=== PATIENT | female | born 1965 | race Caucasian/White ===

== ENCOUNTER → 2017-01-24 | Outpatient (CLI) | payer BC ==
--- NOTE | 2017-01-25 11:01 | EST ---
DATE OF SERVICE: 01/24/2017 TYPE OF REPORT: Regular stress test - [facility] INDICATION: Chest pain. BASELINE HEART RATE: 82 BASELINE BLOOD PRESSURE: 127/88 MAXIMUM HEART RATE: 160 MAXIMUM BLOOD PRESSURE: 210/90 85% MPHR: 145 100% MPHR: 170 METS: MAX STAGE REACHED: IV TOTAL EXERCISE TIME: 9:45 Baseline EKG revealed normal sinus rhythm without significant ST-T changes. Patient walked for 9 minutes 45 seconds. Achieved a maximum heart rate of 160 beats per minute, which is well above 85% o predicted maximum. Resting heart rate was 82 beats per minute and resting blood pressure was 127/88. Peak heart rate was 160 beats per minute and blood pressure was 210/90. Patient had a hypertensive response to exercise. She did not have any angina or arrhythmia. EKG did not reveal any ST segment changes to indicate ischemia. This is a negative stress test by EKG criteria with good exercise capacity. ZARIA
== END | disposition home or self-care (01) ==
LOC: RADNMMAIN 11:03
PROVIDERS: ATTEND Family Medicine
DX: R07.9 Chest pain, unspecified (principal)
CPT/HCPCS: 93017; 93270; 93271

== ENCOUNTER → 2017-04-18 | Outpatient (CLI) | payer BC ==
--- NOTE | 2017-04-18 13:09 | MM ---
Reason for exam: clinical finding. Last mammogram was performed 3 years and 2 months ago. History: Benign excisional biopsy of the right breast, 2000. Reductions of both breasts, 1999. Physical Findings: Nurse Summary: 0.5cm nodule in the left breast at 2 o'clock (nurse sol). MG Diagnostic Mammo w CAD JUANY Bilateral CC and MLO view(s) were taken. LM and spot compression MLO view(s) were taken of the left breast. Prior study comparison: February 25, 2014, bilateral MG diagnostic mammo w CAD JUANY. The breast tissue is extremely dense which could obscure a lesion on mammography. Finding: There is stable architectural distortion in the right breast consistent with excisional biopsy. Asymmetric breast tissue in the left breast, stable. There is no discrete abnormality persists. These results were verbally communicated with the patient and result sheet given to the patient on 04/18/17. ASSESSMENT: Incomplete: need additional imaging evaluation, BI-RAD 0 RECOMMENDATION: Ultrasound of the left breast. (palpable abnormality)
--- NOTE | 2017-04-18 13:11 | USB ---
Reason for exam: additional evaluation requested from abnormal screening. History: Benign excisional biopsy of the right breast, 2000. Reductions of both breasts, 1999. US Breast Workup Limited LT Left breast ultrasound demonstrates a 1.3 x 0.7 x 1.4cm hyperechoic lesion at 2 o'clock felt to reflect/correlate with stable asymmetric tissue on mammogram. These results were verbally communicated with the patient and result sheet given to the patient on 04/18/17. ASSESSMENT: Probably benign, BI-RAD 3 RECOMMENDATION: Follow-up diagnostic mammogram and ultrasound of the left breast in 6 months.
== END | disposition home or self-care (01) ==
LOC: RADMAMWWP 10:40
PROVIDERS: ATTEND Family Medicine
DX: Z12.31 Encounter for screening mammogram for malignant neoplasm of breast (principal); R92.8 Other abnormal and inconclusive findings on diagnostic imaging of breast
CPT/HCPCS: 76642; G0204

== ENCOUNTER → 2017-04-19 | Day surgery (SDC) | payer BC ==
[2017-04-18 09:12] VITALS: BMI 24.1
[~2017-04-19] MED LIST: PROPOFOL 10 MG/ML 20 ML VIAL IV ONE
[2017-04-19 11:02] VITALS: TEMP 97.2
[2017-04-19] MEDS: LACTATED RINGERS 1,000 ML IV SCH ×2 (11:07→12:23)
--- NOTE | 2017-04-19 12:44 | P.PCN ---
Date of Procedure: 04/19/17 Procedure(s) Performed: BRIEF HISTORY: Patient is a 51-year-old pleasant white female, scheduled for an elective colonoscopy as a part of screening for colon neoplasia. PROCEDURE PERFORMED: Colonoscopy with snare polypectomy. PREOPERATIVE DIAGNOSIS: Screening for colon cancer. IV sedation per Anesthesia. PROCEDURE: After informed consent was obtained, the patient, was brought into the endoscopy unit. IV sedation was administered by Anesthesia under continuous monitoring. Digital rectal examination was normal. Initially the Olympus CF- 160 flexible video colonoscope was then inserted in the rectum, gradually advanced into the cecum without any difficulty. Careful examination was performed as the scope was gradually being withdrawn. Ileocecal valve and the appendiceal orifice were visualized and appeared normal. Prep was excellent. Mucosa of the cecum, ascending colon appeared normal. In the transverse colon there was a 5 mm polyp removed by snare polypectomy. In the sigmoid colon there was another 5 mm polyp that was snare polypectomy. Rest of the transverse colon, descending colon, sigmoid colon, and rectum appeared normal. Scattered left sided diverticulosis seen. Retroflexion was performed in the rectum and no lesions were seen. The patient tolerated the procedure well. IMPRESSION: 5 mm transverse colon polyp status post was snare polypectomy 5 mm sigmoid colon polyp status post post-polypectomy Scattered left sided diverticulosis. RECOMMENDATIONS: Findings of this examination were discussed with the patient as well as a family. She was advised to follow with the biopsy results. If the biopsy shows a tubular adenoma she can have a repeat coloscopy in 5 years.
[2017-04-19 13:26] VITALS: BP 113/65; PULSE 74; RESP 20
== END ==
LOC: ORWHC2ENDO 10:05
PROVIDERS: ATTEND Internal Medicine Gastroenterology
DX: Z12.11 Encounter for screening for malignant neoplasm of colon (principal); D12.3 Benign neoplasm of transverse colon; D12.5 Benign neoplasm of sigmoid colon; K57.30 Diverticulosis of large intestine without perforation or abscess without bleeding
CPT/HCPCS: 81025; 88305; 45385; J2704

== ENCOUNTER → 2017-10-23 | Outpatient (CLI) | payer BC ==
--- NOTE | 2017-10-24 08:54 | MM ---
Reason for exam: follow-up at short interval from prior study. Last mammogram was performed 6 months ago. History: Benign excisional biopsy of the right breast, 2000. Reductions of both breasts, 1999. Physical Findings: Nurse Summary: 1 x 1.5cm nodule in the left lateral breast at 2 o'clock (nurse ts). MG 3D Diag Mammo W/Cad LT CC and MLO view(s) were taken of the left breast. Prior study comparison: April 18, 2017, bilateral MG diagnostic mammo w CAD JUANY. February 25, 2014, bilateral MG diagnostic mammo w CAD JUANY. The breast tissue is heterogeneously dense. This may lower the sensitivity of mammography. Posterior upper outer quadrant palpable marker. Underlying focal asymmetries one stable for 6 months and show no clear persisting mass on post view. These results were verbally communicated with the patient and result sheet given to the patient on 10/23/17. ASSESSMENT: Incomplete: need additional imaging evaluation, BI-RAD 0 RECOMMENDATION: Ultrasound of the left breast.
--- NOTE | 2017-10-24 09:05 | USB ---
Reason for exam: additional evaluation requested from abnormal screening. History: Benign excisional biopsy of the right breast, 2000. Reductions of both breasts, 1999. US Breast LT Left complete breast ultrasound includes all four quadrants, the retroareolar region and axilla. Finding demonstrates a 1.3 x 0.6 x 1.4cm heterogeneous area at 2 o'clock in unchanged in size and configuration for 6 months. Corresponds to the palpable site. This could represent scar tissue or asymmetric breast tissue. Additional 6 months follow up recommended. These results were verbally communicated with the patient and result sheet given to the patient on 10/23/17. ASSESSMENT: Probably benign, BI-RAD 3 RECOMMENDATION: Follow-up diagnostic mammogram of both breasts in 6 months. Ultrasound of the left breast in 6 months.
== END | disposition home or self-care (01) ==
LOC: RADMAMWWP 13:58
PROVIDERS: ATTEND Family Medicine
DX: R92.8 Other abnormal and inconclusive findings on diagnostic imaging of breast (principal)
CPT/HCPCS: 77061; 77065

== ENCOUNTER → 2018-02-03 | Outpatient (CLI) | payer BC ==
--- NOTE | 2018-02-03 16:59 | XR ---
Cervical spine HISTORY: Neck pain, arm numbness 3 views of the cervical spine There is spondylosis with loss of disc height present at C5-6, minimal retrolisthesis grade 1. Cervic al vertebral bodies show preserved height. Bone mineralization is normal. Suspect some mild facet art hropathy. IMPRESSION: Degenerative disc disease and facet arthropathy. Cervical MRI may be of benefit.
== END | disposition home or self-care (01) ==
LOC: RADXRMAIN 13:26
PROVIDERS: ATTEND Family Medicine
DX: M50.30 Other cervical disc degeneration, unspecified cervical region (principal); M46.92 Unspecified inflammatory spondylopathy, cervical region
CPT/HCPCS: 72040

== ENCOUNTER → 2018-02-24 | Outpatient (CLI) | payer BC ==
--- NOTE | 2018-02-24 16:31 | MR ---
MRI CERVICAL SPINE: CLINICAL HISTORY: Cervical region radiculopathy per order. Headache with neck pain causing shoulder p ain and pain and weakness into both arms and fingers for 5 years per patient. TECHNIQUE: Multiplanar, multisequence imaging of the cervical spine is performed without IV contrast. COMPARISON: MRI cervical spine July 22, 2015. Cervical spine x-ray February 03, 2018. FINDINGS: Sagittal images of the cervical spine show the craniocervical junction to remain within nor mal limits. The cervical and upper thoracic spinal cord remains normal in course, caliber, and signa l. There is stable grade 1 retrolisthesis of C5 on C6 with [id number] disc space narrowing at t his level and mild disc space narrowing C6-C7 level. The vertebral body and intravertebral disk heig hts otherwise are normal. No new large posterior disc herniations are seen on sagittal images. The mary ne marrow signal intensity is within normal limits. No significant spurring is present. Axial images show the C2-C3, C3-C4, C4-C5 levels all to remain within normal limits. Axial images at C5-C6 level show tiny central disc protrusion minimally effacing anterior thecal sac, bilateral neural foramina are patent. No significant change from prior. Axial images at C6-C7 level show slightly more prominent central disc protrusion mildly facing anteri or thecal sac and causing asymmetric mild right-sided neural foraminal narrowing on current study due to foraminal component. Left-sided neural foramen is patent. Axial images at C7-T1 level are felt within normal limits. IMPRESSION: Stable mild degenerative change C5-C6 level and mild spondylolisthesis. New small disc he rniation C6-C7 level is noted.
== END | disposition home or self-care (01) ==
LOC: RADMRIMAIN 15:22
PROVIDERS: ATTEND Family Medicine
DX: M50.123 Cervical disc disorder at C6-C7 level with radiculopathy (principal); M43.12 Spondylolisthesis, cervical region; M47.22 Other spondylosis with radiculopathy, cervical region
CPT/HCPCS: 72141

== ENCOUNTER → 2021-01-04 | Outpatient (CLI) | payer OTHER ==
--- NOTE | 2021-01-06 08:53 | MM ---
Reason for exam: screening (asymptomatic). Last mammogram was performed 3 years and 2 months ago. History: Benign excisional biopsy of the right breast, 2000. Reductions of both breasts, 1999. Physical Findings: A clinical breast exam by your physician is recommended on an annual basis and results should be correlated with mammographic findings. MG Screening Mammo w CAD Bilateral CC and MLO view(s) were taken. Prior study comparison: October 23, 2017, left breast MG 3d diag mammo w/cad LT. April 18, 2017, bilateral MG diagnostic mammo w CAD JUANY. The breast tissue is heterogeneously dense. This may lower the sensitivity of mammography. Stable bilateral areas of asymmetric density. No significant changes when compared with prior studies. ASSESSMENT: Benign, BI-RAD 2 RECOMMENDATION: Routine screening mammogram of both breasts in 1 year.
== END | disposition home or self-care (01) ==
LOC: RADMAMWWP 12:59
PROVIDERS: ATTEND Obstetrics & Gynecology
DX: Z12.31 Encounter for screening mammogram for malignant neoplasm of breast (principal)
CPT/HCPCS: 77067

== ENCOUNTER → 2021-05-08 | Outpatient (CLI) | payer OTHER | END | disposition home or self-care (01) | LOC: LABMAIN 18:11 | PROVIDERS: ATTEND Student in an Organized Health Care Education/Training Program | DX: Z20.822 Contact with and (suspected) exposure to COVID-19 (principal) | CPT/HCPCS: 87635 ==

== ENCOUNTER → 2021-08-25 | Outpatient (CLI) | payer OTHER ==
--- NOTE | 2021-08-25 15:58 | US ---
EXAMINATION TYPE: US axilla RT DATE OF EXAM: 08/25/2021 COMPARISON: NONE CLINICAL HISTORY: M78.621 pain in R upper arm. Pain right axilla x 1 year; history of rotator cuff re striction per patient. US findings at right axilla: at medial right axilla a lymph node is seen = 0.6 x 0.7 x 0.5cm. No othe r solid or cystic masses are noted midline axilla at patient's area of pain. IMPRESSION: Simple appearing subcentimeter lymph node right axilla marked by technologist. Remainder of study shows normal subcutaneous tissue and deeper muscle. No concerning solid or cystic mass or f luid collection is seen on images saved.
== END | disposition home or self-care (01) ==
LOC: RADUSWWP 15:24
PROVIDERS: ATTEND Family Medicine
DX: M79.621 Pain in right upper arm (principal)

== ENCOUNTER → 2021-08-30 | Outpatient (CLI) | payer OTHER ==
--- NOTE | 2021-08-30 14:30 | MM ---
Reason for exam: additional evaluation requested from prior study. Last mammogram was performed 8 months ago. History: Patient is postmenopausal. Benign excisional biopsy of the right breast, 2000. Reductions of both breasts, 1999. Physical Findings: A clinical breast exam by your physician is recommended on an annual basis and results should be correlated with mammographic findings. MG 3D Diag Mammo W/Cad JUANY Bilateral CC and MLO view(s) were taken. Prior study comparison: January 04, 2021, bilateral MG screening mammo w CAD. October 23, 2017, left breast MG 3d diag mammo w/cad LT. The breast tissue is heterogeneously dense. This may lower the sensitivity of mammography. There is no discrete abnormality including area of concern right axilla within the field of view. No significant changes when compared with prior studies. ASSESSMENT: Benign, BI-RAD 2 RECOMMENDATION: Routine screening mammogram of both breasts in 1 year. Manage on a clinical basis with regard to right axillary pain.
== END | disposition home or self-care (01) ==
LOC: RADMAMWWP 10:14
PROVIDERS: ATTEND Family Medicine
DX: M79.621 Pain in right upper arm (principal)
CPT/HCPCS: 77062; 77066

== ENCOUNTER → 2022-11-21 | Outpatient (CLI) | payer OTHER ==
[2022-11-21 08:13] VITALS: BP 145/86; PULSE 72; RESP 17; TEMP 97.9
--- NOTE | 2022-11-21 08:43 | P.GSHP ---
History of Present Illness H&P Date: 11/21/22 Chief Complaint: palpable abnormality left breast, lump left axilla Kaitlin is a 57-year-old white female seen in consultation for Dr. Steven regarding the palpable abnormality in her left breast and a prominent lymph node in the left axilla. She underwent a bilateral mammogram on 5822. This revealed heterogeneously dense breast tissue. She had undergone previously a reduction mammoplasty. There was a palpable change in the upper outer aspect of the left breast for which ultrasound was recommended. Ultrasound was performed on the same date. This revealed scattered dense tissue present. A prominent but benign-appearing lymph node in the left axilla measuring 2.2 x 1.3 cm. This had a uniform cortex and fatty echogenic hilum. No discrete abnormality was seen at the 2:00 palpable site. This was considered BIRADS 2. She was noted what appeared to be a prominent but benign-appearing lymph node in the left axilla was 2.2 x 1.3 cm. It was considered benign BIRADS 2. She is not complaining of any recent trauma or infection in her left arm or hand. 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 She has felt a lump in her left breast in the lateral aspect for approximately 6 weeks. She underwent a reduction mammoplasty in 2000. Since that time she is also noted a lump in her right breast which was removed in 2001. This was benign, this was a fibroadenoma. It has not changed in size. She had knee surgery in 2018 and had two frozen shoulders were treated with physical therapy manipulation of the right shoulder. Those have resolved. Approximately one year ago she had pain in her right axilla but nothing was found of concern. She has bilateral Dupuytren's contracture, and bilateral carpal tunnel. This is most likely work-related. She has had bilateral reduction mammoplasty as well as a removal of a benign fibroadenoma and the right breast. She has not had any other surgery on her breast. Caffeine: none nicotine: none chocolate: occasional BCP: > 10 years, stopped in her 20's; does not use any plat phytoestrogens Family History: paternal aunt: cervical cancer mother: leukemia Hormonal History: menarche:13 , breat fed:yes, age at first : 26 menopause: 56 hormones: none Surgical HIstory: right knee breast reduction right shoulder manipulation right breast biopsy left breast lump removed surgery after dog jumped on her left breast and opend a prior fresh biopsy site Medical History: none Social History: nicotine: none alcohol: 1 cocktail/day drugs: none - Constitutional Constitutional: Reports sweats - EENT Eyes: denies blurred vision, denies pain Ears: left: decreased hearing (from ear infections), deny: tinnitus Ears, nose, mouth and throat: Denies headache, Denies sore throat - Breasts Breasts: bilateral: as per HPI - Cardiovascular Cardiovascular: Denies chest pain, Denies shortness of breath - Respiratory Respiratory: Denies cough, Denies 7 - Gastrointestinal Gastrointestinal: Denies abdominal pain, Denies diarrhea, Denies nausea, Denies vomiting - Genitourinary (Female) Genitourinary: Reports kidney stones, Denies dysuria, Denies hematuria - Menstruation Menstruation: Reports postmenopausal - Musculoskeletal Comment: arthritis Musculoskeletal: Reports as per HPI, Reports myalgias - Integumentary Integumentary: Denies pruritus, Denies rash - Neurological Neurological: Reports numbness - Psychiatric Psychiatric: Denies anxiety, Denies depression - Endocrine Endocrine: Reports weight change, Denies fatigue - Hematologic/Lymphatic Comment: none - Allergic/Immunologic Allergic/Immunologic: Reports seasonal allergies Past Medical History Past Medical History: No Reported History History of Any Multi-Drug Resistant Organisms: None Reported Past Surgical History: Breast Surgery, Orthopedic Surgery, Tonsillectomy Additional Past Surgical History / Comment(s): BREAST REDUCTION AND LUMPECTOMIES. RT KNEE SX Past Anesthesia/Blood Transfusion Reactions: Postoperative Nausea & Vomiting (PONV) Past Psychological History: No Psychological Hx Reported Past Alcohol Use History: Occasional Past Drug Use History: None Reported - Past Family History Mother Family Medical History: No Reported History Medications and Allergies Home Medications Medication Instructions Recorded Confirmed Type No Known Home Medications 04/18/17 11/21/22 History Allergies Allergy/AdvReac Type Severity Reaction Status Date / Time No Known Allergies Allergy Verified 11/21/22 08:09 Surgical - Exam - General no distress - Eyes normal ocular movement - Neck trachea midline - Respiratory normal respiratory effort, clear to auscultation - Cardiovascular Rhythm: regular Heart Sounds: normal: S1, S2 - Abdomen Abdomen: soft, non tender, no guarding, no rigid, no rebound - Integumentary normal turgor - Neurologic no disoriented, no combative - Musculoskeletal normal gait, normal posture - Psychiatric oriented to time, oriented to person, oriented to place, speech is normal, memory intact Breast Exam: BRA 38C was a 38DD 2 1/2 pounds off each side/ plastic surgeon Manju Jamil Inspection: Bilateral breast reduction scars well-healed, bilateral grade 1 ptosis Palpation: Right breast: Multi-positional exam fibrocystic changes, no dominant masses or nodules of concern right Axilla: No adenopathy of concern Left breast: Multiple positional exam fibrocystic changes, with the patient bringing attention to the area. Is a slight area in the upper outer quadrant region at approximately 2:00 close to the chest wall of slight increased nodularity, this is obscured believed to be most likely related to dense breast tissue, no other dominant masses or nodules of concern Left axilla: No adenopathy of concern, particularly attention was made secondary to the findings of a lymph node on ultrasound but this could not be palpated Cervical examination no adenopathy of concern No groin adenopathy of concern Spleen is not enlarged, the liver was not enlarged Results Mammogram and ultrasound reviewed benign BIRADS 2 from 5823 Assessment and Plan Assessment: Impression: Fibrocystic breast changes Status post bilateral reduction mammoplasty 2000 Palpable change left breast upper outer quadrant most likely lobulated breast tissue Bilateral mammogram and left breast ultrasound 5823 benign BIRADS 2 with particular attention to the palpable change in the left breast Plan: We have discussed options which would include Core biopsy of palpable change which is very obscure and we were concerned that we would not sampled the correct area Surgical resection in the operating room Close surveillance with repeat ultrasound and examination in 3 months with the patient come in sooner any questions or concerns After discussing all the above the decision has been made to do close surveillance and the patient will be seen again in 3 months. She understands at that time if anything is changed that we may recommend tissue sampling and/or resection. CC: Dr. Steven, Dr. Kilgore
== END ==
LOC: WWCWWP 07:49
PROVIDERS: ATTEND Surgery
DX: N60.12 Diffuse cystic mastopathy of left breast (principal); N63.32 Unspecified lump in axillary tail of the left breast; N63.10 Unspecified lump in the right breast, unspecified quadrant; M72.0 Palmar fascial fibromatosis [Dupuytren]; G56.03 Carpal tunnel syndrome, bilateral upper limbs; Z80.8 Family history of malignant neoplasm of other organs or systems; Z98.86 Personal history of breast implant removal; Z86.018 Personal history of other benign neoplasm

== ENCOUNTER → 2023-01-24 | Outpatient (CLI) | payer OTHER ==
--- NOTE | 2023-01-24 09:45 | MM ---
Reason for Exam: Clinical finding. Last screening mammogram was performed 3 month(s) ago. Indicated Problems: Lump or thickening of the left side for 4 Month(s). Patient History: Menarche at age 13. First Full-Term at age 26. Postmenopausal. 1999, Bilateral Reduction. 2000, Benign Excisional Biopsy on the right side. Risk Values: Kayce 5 year model risk: 1.6%. NCI Lifetime model risk: 10.4%. Prior Study Comparison: 01/04/2021 Bilateral Screening Mammogram, [facility]. 08/30/2021 Bilateral Diagnostic Mammogram, [facility]. 10/15/2022 Bilateral MG 3D diag mammo w/cad JUANY, [facility]. Tissue Density: Left: The breast tissue is heterogeneously dense. This may lower the sensitivity of mammography. Findings: Analyzed By CAD. Nothing to correlate with patient's palpable abnormality in the left breast. No new suspicious masses, calcifications or distortions. Overall Assessment: Incomplete: need additional imaging evaluation, BI-RAD 0 Management: Diagnostic Breast Ultrasound of the left breast. Results were given to the patient verbally at the time of exam. Patient should continue monthly self-breast exams. A clinical breast exam by your physician is recommended on an annual basis. This exam should not preclude additional follow-up of suspicious palpable abnormalities. Note on Kayce scores and lifetime risk: 1. A Kayce score greater than 3% is considered moderate risk. If this is the case, consider specialist referral to assess eligibility for a risk reducing agent. 2. If overall lifetime risk for the development of breast cancer is 20% or higher, the patient may qualify for future screening with alternating mammogram and breast MRI. Electronically signed and approved by: Jeff Lane DO
--- NOTE | 2023-01-24 10:10 | USB ---
Reason for Exam: Clinical finding. Patient History: Menarche at age 13. First Full-Term at age 26. Postmenopausal. 1999, Bilateral Reduction. 2000, Benign Excisional Biopsy on the right side. Risk Values: Kayce 5 year model risk: 1.6%. NCI Lifetime model risk: 10.4%. Technique: Method: Targeted. Prior Study Comparison: 01/04/2021 Bilateral Screening Mammogram, [facility]. 08/30/2021 Bilateral Diagnostic Mammogram, [facility]. 10/15/2022 Bilateral MG 3D diag mammo w/cad JUANY, [facility]. Findings: The upper section of the breast of the left breast, the lateral section of the breast of the left breast, the area of palpable concern of the left breast, the axilla of the left breast and the retroareolar of the left breast were scanned. Imaged: Ultrasound imaging of: Area of concern, retroareolar region and axilla. Nothing to correlate with patient's palpable abnormality. No evidence for organizing fluid collection or mass. Overall Assessment: Benign, BI-RAD 2 Management: Screening Mammogram of both breasts in 1 year. A clinical breast exam by your physician is recommended on an annual basis and results should be correlated with mammographic findings. This exam should not preclude additional follow-up of suspicious palpable abnormalities. Results were given to the patient verbally at the time of exam. Electronically signed and approved by: Jeff Lane DO
== END | disposition home or self-care (01) ==
LOC: RADUSWWP 08:56
PROVIDERS: ATTEND Surgery
DX: N63.21 Unspecified lump in the left breast, upper outer quadrant (principal); Z78.0 Asymptomatic menopausal state
CPT/HCPCS: 77061; 77065

== ENCOUNTER → 2023-02-22 | Outpatient (CLI) | payer OTHER ==
--- NOTE | 2023-02-22 11:00 | P.PN ---
Subjective Progress Note Date: 02/22/23 Principal diagnosis: follow up palpable change left breast palpable abnormality left breast, lump left axilla Kaitlin is a 57-year-old white female seen in consultation for Dr. Steven on 11-21-22 regarding a palpable abnormality in her left breast and a prominent lymph node in the left axilla. She underwent a bilateral mammogram on 5822. This revealed heterogeneously dense breast tissue. She had undergone previously a reduction mammoplasty. There was a palpable change in the upper outer aspect of the left breast for which ultrasound was recommended. Ultrasound was performed on the same date. This revealed scattered dense tissue present. A prominent but benign-appearing lymph node in the left axilla measuring 2.2 x 1.3 cm. This had a uniform cortex and fatty echogenic hilum. No discrete abnormality was seen at the 2:00 palpable site. This was considered BIRADS 2. She was noted what appeared to be a prominent but benign-appearing lymph node in the left axilla was 2.2 x 1.3 cm. It was considered benign BIRADS 2. She is not complaining of any recent trauma or infection in her left arm or hand. 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 She has felt a lump in her left breast in the lateral aspect for approximately 6 weeks at the time of her first visit. She underwent a reduction mammoplasty in 2000. Since that time she is also noted a lump in her right breast which was removed in 2001. This was benign, this was a fibroadenoma. It has not changed in size. She had knee surgery in 2018 and had two frozen shoulders were treated with physical therapy manipulation of the right shoulder. Those have resolved. Approximately one year ago she had pain in her right axilla but nothing was found of concern. She has bilateral Dupuytren's contracture, and bilateral carpal tunnel. This is most likely work-related. She has had bilateral reduction mammoplasty as well as a removal of a benign fibroadenoma and the right breast. She has not had any other surgery on her breast. She had a left breast mammogram and ultrasound on 01-24-23 which was BIRAD 2. States she continues to feel a lump in the left breast in the upper quadrant which has not changed. It is not painful. Caffeine: none nicotine: none chocolate: occasional BCP: > 10 years, stopped in her 20's; does not use any plat phytoestrogens Family History: paternal aunt: cervical cancer mother: leukemia Hormonal History: menarche:13 , breat fed:yes, age at first : 26 menopause: 56 hormones: none Surgical HIstory: right knee breast reduction right shoulder manipulation right breast biopsy left breast lump removed surgery after dog jumped on her left breast and opend a prior fresh biopsy site Medical History: none Social History: nicotine: none alcohol: 1 cocktail/day drugs: none - Constitutional Constitutional: Reports sweats - EENT Eyes: denies blurred vision, denies pain Ears: left: decreased hearing (from ear infections), deny: tinnitus Ears, nose, mouth and throat: Denies headache, Denies sore throat - Breasts Breasts: bilateral: as per HPI - Cardiovascular Cardiovascular: Denies chest pain, Denies shortness of breath - Respiratory Respiratory: Denies cough - Gastrointestinal Gastrointestinal: Denies abdominal pain, Denies diarrhea, Denies nausea, Denies vomiting - Genitourinary (Female) Genitourinary: Reports kidney stones, Denies dysuria, Denies hematuria - Menstruation Menstruation: Reports postmenopausal - Musculoskeletal Comment: arthritis Musculoskeletal: Reports as per HPI, Reports myalgias - Integumentary Integumentary: Denies pruritus, Denies rash - Neurological Neurological: Reports numbness - Psychiatric Psychiatric: Denies anxiety, Denies depression - Endocrine Endocrine: Reports weight change, Denies fatigue - Hematologic/Lymphatic Comment: none - Allergic/Immunologic Allergic/Immunologic: Reports seasonal allergies Past Medical History Past Medical History: No Reported History History of Any Multi-Drug Resistant Organisms: None Reported Past Surgical History: Breast Surgery, Orthopedic Surgery, Tonsillectomy Additional Past Surgical History / Comment(s): BREAST REDUCTION AND LUMPECTOMIES. RT KNEE SX Past Anesthesia/Blood Transfusion Reactions: Postoperative Nausea & Vomiting (PONV) Past Psychological History: No Psychological Hx Reported Past Alcohol Use History: Occasional Past Drug Use History: None Reported - Past Family History Mother Family Medical History: No Reported History Medications and Allergies Home Medications Medication Instructions Recorded Confirmed Type No Known Home Medications 04/18/17 11/21/22 History Allergies Allergy/AdvReac Type Severity Reaction Status Date / Time No Known Allergies Allergy Verified 11/21/22 08:09 Objective - Constitutional General appearance: Present: cooperative - EENT Eyes: Present: EOMI ENT: Present: hearing grossly normal - Neck Neck: Present: normal ROM - Respiratory Respiratory: bilateral: CTA - Cardiovascular Heart sounds: normal: S1, S2 - Integumentary Integumentary: Present: normal turgor - Musculoskeletal Musculoskeletal: Present: gait normal - Psychiatric Psychiatric: Present: A&O x's 3, appropriate affect, intact judgment & insight - Additional findings Additional findings: Breast Exam: BRA 38C was a 38DD 2 1/2 pounds off each side/ plastic surgeon Manju Jamil Inspection: Bilateral breast reduction scars well-healed, bilateral grade 1 ptosis Palpation: Right breast: Multi-positional exam fibrocystic changes, no dominant masses or nodules of concern right Axilla: No adenopathy of concern Left breast: Multiple positional examination of the left breast reveals fibrocystic changes, on today's examination with the patient sitting up there is some increased nodularity in the lateral 2 o'clock position. This is not appreciated with the patient laying down. This was not felt as well on the patient's last examination. Left axilla: No adenopathy of concern, particularly attention was made secondary to the findings of a lymph node on ultrasound but this could not be palpated Cervical examination no adenopathy of concern Assessment and Plan Assessment: Impression: Fibrocystic breast changes Status post bilateral reduction mammoplasty 2000 Palpable change left breast upper outer quadrant most likely lobulated breast tissue Bilateral mammogram and left breast ultrasound 5823 benign BIRADS 2 with particular attention to the palpable change in the left breast; repeat left breast mammogram and ultrasound on 01-24-23 BIRAD 2 Plan: We have discussed option which would include: Targeted ultrasound of the palpable area and ultrasound-guided core biopsy If nothing is seen and ultrasound core biopsy of the palpable area Surgical resection in the operating room; which would not recommend at this time Continue close surveillance, however the area has not gone away and the patient would prefer to have a tissue diagnosis CC: Dr. Steven, Dr. Kilgore
[2023-02-22 15:34] VITALS: BP 161/98; PULSE 85; RESP 16; TEMP 98.7
== END ==
LOC: WWCWWP 10:03
PROVIDERS: ATTEND Surgery
DX: N60.12 Diffuse cystic mastopathy of left breast (principal); N63.32 Unspecified lump in axillary tail of the left breast; G56.03 Carpal tunnel syndrome, bilateral upper limbs; Z86.018 Personal history of other benign neoplasm

== ENCOUNTER → 2023-03-14 | Outpatient (CLI) | payer OTHER ==
--- NOTE | 2023-03-14 14:52 | P.PN ---
Progress Note - Text Progress Note Date: 03/14/23 Kaitlin underwent a core biopsy of a palpable change in her left breast on 03-07-23. Her pathology was benign. This showed fibroadipose tissue nondiagnostic of neoplasia but were limited sample. The specimen was felt to be scanty there was no breast tissue of lymph node tissue identified. The patient tolerated procedure well. Examination: Biopsy site: Clean and dry mild ecchymosis Impression: Benign changes left breast Plan: Repeat left breast ultrasound in 6 months bilateral mammogram October 2023 with physician exam at that time CC: Dr. Kilgore
[2023-03-14 15:14] VITALS: BP 165/99; PULSE 85; RESP 16; TEMP 98.2
== END ==
LOC: WWCWWP 14:09
PROVIDERS: ATTEND Surgery
DX: L76.82 Other postprocedural complications of skin and subcutaneous tissue (principal)

== ENCOUNTER 2024-08-11 20:02 | Emergency (ER) | payer OTHER ==
[2024-08-11 20:57] VITALS: TEMP 98.9
--- NOTE | 2024-08-11 21:31 | ED ---
Chest Pain HPI - General Chief Complaint: Chest Pain Stated Complaint: R Armpit pain Time Seen by Provider: 08/11/24 21:15 Source: patient, RN notes reviewed, old records reviewed Mode of arrival: ambulatory Limitations: no limitations - History of Present Illness Initial Comments: This is a 58-year-old female to the ER today. She is presenting to us for evaluation regards to chest pain, chest tightness. She feels chest tightness over the left side of her chest as well as pain into her right shoulder. Heart rates been elevated throughout the day, patient states she has not felt well throughout the course of the day but no shortness of breath no diaphoresis no fevers no cough no congestion no travels no sick contacts. Patient does have history of high blood pressure but blood pressure is higher than it has ever been. Patient taking blood pressure medications as prescribed. Does have family history of heart disease non-smoker nondiabetic with normal cholesterol MD Complaint: chest pain -: hour(s) Onset: during rest Pain Location: substernal Pain Radiation: RUE, back Severity: moderate Severity scale (1-10): 4 Quality: tightness, aching Consistency: constant Improves With: nothing Worsens With: nothing Anginal Symptoms: nausea Other Symptoms: palpitations Treatments Prior to Arrival: none - Related Data Home Medications Medication Instructions Recorded Confirmed No Known Home Medications 04/18/17 03/14/23 Allergies Allergy/AdvReac Type Severity Reaction Status Date / Time No Known Allergies Allergy Verified 08/11/24 20:53 Review of Systems ROS Statement: Those systems with pertinent positive or pertinent negative responses have been documented in the HPI. ROS Other: All systems not noted in ROS Statement are negative. EKG Findings - EKG Comments: EKG Findings:: EKG is Sinus 90 KS 156 QRS 81 QTc 404 - EKG Results: EKG: interpreted by [facility] Past Medical History Past Medical History: No Reported History History of Any Multi-Drug Resistant Organisms: None Reported Past Surgical History: Breast Surgery, Orthopedic Surgery, Tonsillectomy Additional Past Surgical History / Comment(s): BREAST REDUCTION ANd breast biopsy. Left finger surgery. RT KNEE SX Past Anesthesia/Blood Transfusion Reactions: Postoperative Nausea & Vomiting (PONV) Past Psychological History: No Psychological Hx Reported Smoking Status: Never smoker Past Alcohol Use History: Occasional Past Drug Use History: None Reported - Past Family History Mother Family Medical History: No Reported History General Exam General appearance: alert, in no apparent distress Head exam: Present: atraumatic, normocephalic, normal inspection Eye exam: Present: normal appearance, PERRL, EOMI. Absent: scleral icterus, conjunctival injection, periorbital swelling ENT exam: Present: normal exam, mucous membranes moist Neck exam: Present: normal inspection. Absent: tenderness, meningismus, lymphadenopathy Respiratory exam: Present: normal lung sounds bilaterally. Absent: respiratory distress, wheezes, rales, rhonchi, stridor Cardiovascular Exam: Present: regular rate, normal rhythm, normal heart sounds. Absent: systolic murmur, diastolic murmur, rubs, gallop, clicks GI/Abdominal exam: Present: soft, normal bowel sounds. Absent: distended, ten derness, guarding, rebound, rigid Extremities exam: Present: normal inspection, full ROM, normal capillary refill. Absent: tenderness, pedal edema, joint swelling, calf tenderness Back exam: Present: normal inspection Neurological exam: Present: alert, oriented X3, CN II-XII intact Psychiatric exam: Present: normal affect, normal mood Skin exam: Present: warm, dry, intact, normal color. Absent: rash Course Vital Signs 08/11/24 08/11/24 08/11/24 20:53 21:44 22:25 Temperature 98.9 F Pulse Rate 111 H 94 98 Respiratory 18 17 16 Rate Blood Pressure 173/113 153/107 144/96 O2 Sat by Pulse 96 96 97 Oximetry 08/11/24 23:17 Temperature Pulse Rate 99 Respiratory 16 Rate Blood Pressure 150/95 O2 Sat by Pulse 95 Oximetry - Reevaluation(s) Reevaluation #1: 08/11/24 22:02 Records reviewed Reevaluation #2: 08/12/24 00:27 Patient remains with chest pain throughout entire ER stay Blood pressure is labile but continues to improve Patient does have episodes of tachycardia here in the emergency department sometimes related to change in position n or stress Reevaluation #3: 08/12/24 00:27 Patient informed of results questions answered Reevaluation #4: Was pt. sent in by a medical professional or institution (, PA, COST ANALYST, urgent care, hospital, or long term...) When possible be specific @ -no Did you speak to anyone other than the patient for history (EMS, parent, family, police, friend...)? What history was obtained from this source @ -no Did you review nursing and triage notes (agree or disagree)? Why? @ -agree Are old charts reviewed (outside hosp., previous admission, EMS record, old EKG, old radiological studies, urgent care reports/EKG's, long term records)? Report findings @ -yes Differential Diagnosis (chest pain, altered mental status, abdominal pain women, abdominal pain men, vaginal bleeding, weakness, fever, dyspnea, syncope, headache, dizziness, GI bleed, back pain, seizure, CVA, palpatations, mental health, musculoskeletal)? @ -prior EKG interpreted by me (3pts min.). @ -yes X-rays interpreted by me (1pt min.). @ -yes negative for acute disease CT interpreted by me (1pt min.). @ -no U/S interpreted by me (1pt. min.). @ -no What testing was considered but not performed or refused? (CT, X-rays, U/S, labs)? Why? @ -none What meds were considered but not given or refused? Why? @ -none Did you discuss the management of the patient with other professionals (professionals i.e. , PA, COST ANALYST, lab, RT, psych nurse, clinical social work therapist, environmental lawyer, teacher, student liaison officer, employment case manager)? Give summary @ -no Was smoking cessation discussed for >3mins.? @ -no Was critical care preformed (if so, how long)? @ -no Were there social determinants of health that impacted care today? How? (Homelessness, low income, unemployed, alcoholism, drug addiction, transportation, low edu. Level, literacy, decrease access to med. care, senior living, rehab)? @ -none Was there de-escalation of care discussed even if they declined (Discuss DNR or withdrawal of care, Hospice)? DNR status @ -no What co-morbidities impacted this encounter? (DM, HTN, Smoking, COPD, CAD, Cancer, CVA, ARF, Chemo, Hep., AIDS, mental health diagnosis, sleep apnea, morbid obesity)? @ -none Was patient admitted / discharged? Hospital course, mention meds given and route, prescriptions, significant lab abnormalities, going to OR and other pertinent info. @ - Undiagnosed new problem with uncertain prognosis? @ -no Drug Therapy requiring intensive monitoring for toxicity (Heparin, Nitro, Insulin, Cardizem)? @ -no Were any procedures done? @ -no Diagnosis/symptom? @ - Acute, or Chronic, or Acute on Chronic? @ -Acute Uncomplicated (without systemic symptoms) or Complicated (systemic symptoms)? @ -Complicated Side effects of treatment? @ -no Exacerbation, Progression, or Severe Exacerbation? @ -exacerbation Poses a threat to life or bodily function? How? (Chest pain, [place], [place], pneumonia, PE, COPD, DKA, ARF, appy, cholecystitis, CVA, Diverticulitis, Homicidal, Suicidal, threat to staff... and all critical care pts) @ -yes Reevaluation #5: Differential Chest Pain: Stable Angina, Unstable Angina, STEMI, NSTEMI Aortic Dissection, Pneumothorax, Musculoskeletal, Esophageal Spasm GERD, Cholecystitis, Pancreatitis, Zoster, this is not meant to be an all-inclusive list. Chest Pain MDM - MDM 58 female to ER for chest pain episodes of tachycardia hypertension left-sided chest pain tightness as well as right shoulder pain. Patient has negative troponin x 2, patient did have a CT scan due to elevated blood pressure and chest pain which was negative, ultrasound gallbladder for right shoulder pain was negative also evaluating hepatic steatosis seen on CT scan. Patient's lab tests are otherwise negative EKG normal patient can be discharged home Disposition Clinical Impression: Atypical chest pain, Chest pain, Tachycardia Disposition: HOME SELF-CARE Condition: Good Instructions (If sedation given, give patient instructions): Chest Pain (ED), Tachycardia (ED) Is patient prescribed a controlled substance at d/c from ED?: No Referrals: Jonathan Kilgore MD [Primary Care Provider] - 1-2 days Time of Disposition: 00:00
[2024-08-11 21:34] LABS: Basophils % (A) 0 %; Eosinophils # (A) 0.1 k/uL (0-0.7); Eosinophils % (A) 2 %; HCT 41.1 % (34.0-46.0); HGB 13.4 gm/dL (11.4-16.0); Lymphocytes # (A) 1.1 k/uL (1.0-4.8); Lymphocytes % (A) 21 %; MCH 31.5 pg (25.0-35.0); MCHC 32.7 g/dL (31.0-37.0); MCV 96.5 fL (80.0-100.0); Mean Platelet Volume 7.3; Monocytes # (A) 0.4 k/uL (0-1.0); Monocytes % (A) 7 %; Neutrophils # (A) 3.6 k/uL (1.3-7.7); Neutrophils % (A) 69 %; Platelet Count 228 k/uL (150-450); RBC 4.26 m/uL (3.80-5.40); RDW 12.9 % (11.5-15.5); WBC 5.3 k/uL (3.8-10.6)
[2024-08-11 21:44] LABS: INR 0.9 (<1.2); Partial Thromboplastin Time 22.7 sec (22.0-30.0); Prothrombin Time 10.4 sec (10.0-12.5)
--- NOTE | 2024-08-11 21:46 | XR ---
EXAMINATION TYPE: XR chest 2V DATE OF EXAM: 08/11/2024 9:23 PM COMPARISON: None CLINICAL INDICATION: Female, 58 years old with history of Chest Pain; TECHNIQUE: XR chest 2V Frontal and lateral views of the chest. FINDINGS: Lungs/Pleura: There is no evidence of pleural effusion, focal consolidation, or pneumothorax. Pulmonary vascularity: Unremarkable. Heart/mediastinum: Cardiomediastinal silhouette is unremarkable. Musculoskeletal: No acute osseous pathology. IMPRESSION: No acute cardiopulmonary disease/process. [facility], , 08/11/2024 9:44 PM
[2024-08-11 21:48] LABS: ALT 64 U/L (4-34); AST 54 U/L (14-36); African American GFR (CKD) >90 (>60 ml/min/1.73 sqM); Albumin 4.9 g/dL (3.5-5.0); Alkaline Phosphatase 117 U/L (38-126); Anion Gap 10 mmol/L; Blood Urea Nitrogen 19 mg/dL (7-17); Calcium 10.3 mg/dL (8.4-10.2); Carbon Dioxide 28 mmol/L (22-30); Chloride 99 mmol/L (98-107); Glucose 129 mg/dL (74-99); Magnesium 1.5 mg/dL (1.6-2.3); Non-African American GFR(CKD) 89 (>60 ml/min/1.73 sqM); Potassium 4.6 mmol/L (3.5-5.1); Sodium 137 mmol/L (137-145); Total Bilirubin 0.8 mg/dL (0.2-1.3); Total Protein 8.3 g/dL (6.3-8.2)
[2024-08-11 21:56] LABS: NT-Pro-B-Type Natriuretic Pept 48 pg/mL
[2024-08-11] MEDS: hydrALAZINE HCL 20 MG/ML 1 ML VIAL IVP STA (21:59)
[2024-08-11] MEDS: MAGNESIUM OXIDE 400 MG TAB PO STA ×2 (22:25)
--- NOTE | 2024-08-11 22:32 | CT ---
EXAMINATION TYPE: CT angio chest DATE OF EXAM: 08/11/2024 10:16 PM COMPARISON: Chest radiograph from same day. CLINICAL INDICATION: Female, 58 years old with history of pe; pt arrives to ED for c/o HTN. pt states she has not missed any doses of her lisinopril. pt reports L chest tightness that travels to her L a pit TECHNIQUE/CONTRAST: CTA scan of the thorax is performed with IV Contrast, patient injected with 65ml mL of Isovue 370, ME P images are created and reviewed these are created on a separate workstation.. CT DLP: 268.9 mGycm, Automated exposure control for dose reduction was used. FINDINGS: Lungs/Pleura: No evidence of focal consolidation, pleural effusion or pneumothorax. Airway: Large airways are patent. Heart: Size within normal limits. No significant coronary artery calcifications. Vasculature: There is no evidence for a filling defect within the pulmonary vasculature to suggest ac [place]vik pulmonary embolism. The pulmonary artery is of normal size. Mediastinum: No gross evidence of adenopathy. Musculoskeletal: No acute osseous abnormalities Soft Tissues/lymph nodes: Unremarkable. Lower neck: No significant findings. Upper Abdomen: Diffuse low-attenuation to the liver parenchyma. IMPRESSION: 1. No evidence of pulmonary embolism. 2. Hepatic steatosis. [facility], , 08/11/2024 10:29 PM
[2024-08-11 23:09] LABS: Influenza A Not Detected (Not Detectd); Influenza B Not Detected (Not Detectd); RSV Not Detected (Not Detectd)
[2024-08-11] MEDS: IBUPROFEN 600 MG TAB PO STA (23:15)
--- NOTE | 2024-08-11 23:22 | US ---
EXAMINATION TYPE: US gallbladder DATE OF EXAM: 08/11/2024 COMPARISON: CT Chest CLINICAL INDICATION: Female, 58 years old with history of pain; IF on Ct Chest Today TECHNIQUE: Grayscale and color Doppler imaging of the right upper quadrant. FINDINGS: EXAM MEASUREMENTS: Liver Length: 18.1 Gallbladder Wall: 0.2m CBD: 0.9, color Doppler imaging was utilized to isolate the common bile duct for measurement. Right Kidney: 9.4x5.4x4.1cm DIRECTOR OF MATERNITY SERVICES NOTES: slightly limited exam due to overlying bowel Pancreas: Tail obscured by overlying bowel gas Liver: Increased attenuation, decreased visualization of vessels suggestive of fatty infiltrate, sli ghtly difficult to penetrate Enlarged Gallbladder: No stones seen Evidence for sonographic Monte's sign: No CBD: ?dilated measuring up to 9 mm. No intraductal Stone visualized on ultrasound. Right Kidney: No hydronephrosis or masses seen IMPRESSION: 1. No evidence for acute process. 2. Hepatic steatosis. 3. Questionable dilation of the common duct for patient's age. Consider further evaluation with MRCP if clinically warranted for evaluation for choledocholithiasis. [facility], , 08/11/2024 11:20 PM
[2024-08-12 00:40] VITALS: BP 144/99; PULSE 86; RESP 17
[2024-08-12 04:15] LABS: Hepatitis A Antibody IgM Nonreactive (Nonreactive); Hepatitis B Core IgM Nonreactive (Nonreactive); Hepatitis B Surface Antigen Nonreactive (Nonreactive); Hepatitis C IgG Antibody Nonreactive (Nonreactive)
== END 2024-08-12 00:40 | disposition home or self-care (01) ==
LOC: EC 20:02
DX: R07.89 Other chest pain (principal); R00.0 Tachycardia, unspecified
CPT/HCPCS: 36415; 93005; 85379; 83880; 80053; 80074; 83690; 83735; 84484; 85025; 85610; 85730; 87636; 71046; 76705; 71275; 99285; 96374; J0360; Q9967